=== PATIENT | male | born 1955 | race Caucasian/White ===

== ENCOUNTER 2019-01-17 08:37 | Day surgery (SDC) | payer OTHER ==
[~2019-01-17] VITALS: Ht 170.2 cm; Wt 91.2 kg
[2019-01-17 09:07] VITALS: Ht 170.2 cm; Wt 91.2 kg
[2019-01-17] MEDS ORDERED: TAMS0.4C2 PO (09:24)
[2019-01-17] MEDS ORDERED: FURO20TA3 PO (09:24)
[2019-01-17] MEDS ORDERED: METO-319 PO (09:24)
[2019-01-17] MEDS ORDERED: DEXT10TA9 PO (09:24)
[2019-01-17] MEDS ORDERED: ATOR40TA68 PO (09:24)
[2019-01-17] MEDS ORDERED: SITA100T11 PO (09:24)
[2019-01-17] MEDS ORDERED: AMLO-147 PO (09:24)
[2019-01-17] MEDS ORDERED: FLUT16SP17 NASAL (09:24)
[2019-01-17] MEDS ORDERED: IPRA15SP NS (09:24)
[2019-01-17] MEDS ORDERED: LORA10TA3 PO (09:24)
[2019-01-17] MEDS ORDERED: ASPI-903 PO (09:24)
[2019-01-17] MEDS ORDERED: LATA2.5D2 BOTH EYES (09:24)
[2019-01-17] MEDS ORDERED: LISI40TA3 PO (09:24)
[2019-01-17] MEDS ORDERED: ACET325T45 PO (09:24)
[2019-01-17] MEDS ORDERED: GUAI-173 PO (09:24)
[2019-01-17] MEDS ORDERED: CITA20TA8 PO (09:24)
[2019-01-17] MEDS ORDERED: BUPR100T7 PO (09:24)
[2019-01-17 09:25] VITALS: BP 117/81; PULSE 71; RESP 16
--- NOTE | 2019-01-17 09:35 | PREAC ---
Date/Time of Note Date/Time of Note DATE: 01/17/19 TIME: 09:34 Anesthesia Eval and Record Evaluation Time Pre-Procedure Interview DATE: 01/17/19 TIME: 09:34 Age 63 Sex male NPO: 8 hrs Preoperative diagnosis eflux esophagitis, screening Planned procedure EGD colonocopoy Past Medical History Past Medical History: Includes Cardio: HTN Endo: Diabetes Renal: CKD Surgery & Anesthesia Issues No known issue Meds Anticoagulation: No Beta Tree within 24 hr: No Reason Beta Tree not given: Pt. not on B-Tree Reported Medications Acetaminophen* (Acetaminophen*) 325 Mg Tablet, 325 MG PO Q4H PRN for PAIN AND OR ELEVATED TEMP, #30 TAB 01/17/19 Bupropion Hcl* (Bupropion Hcl SR*) 100 Mg Tablet.sa, 100 MG PO DAILY, TAB.SA 01/17/19 Ipratropium Vian (Ipratropium Vian) 15 Ml [place], 15 ML NS, SPRAY 01/17/19 Guaifenesin* (Tussin*) 100 Mg/5 Ml Syrup, 200 MG PO Q6 PRN for COUGH, ML 01/17/19 Amphet Qrx-Tcjvag-T-Amphet (Adderall) 10 Mg Tablet, 10 MG PO DAILY, TAB 01/17/19 Tamsulosin Hcl* (Tamsulosin Hcl*) 0.4 Mg Cap.er.24h, 0.4 MG PO HS, CAP 01/17/19 Latanoprost (Latanoprost) 2.5 Ml Drops, 1 DROP BOTH EYES QHS, #1 BOTTLE 01/17/19 Fluticasone Propionate* (Fluticasone Propionate* Nasal) 50 Mcg/Vershire - 16 Gm Vershire.susp, 1 SPRAY NASAL DAILY, #1 BOTTLE TO EACH NOSTRIL 01/17/19 Atorvastatin* (Atorvastatin*) 40 Mg Tablet, 10 MG PO QHS, #30 TAB 01/17/19 Aspirin* (Aspirin* Chew) 81 Mg Tab.chew, 81 MG PO DAILY, TAB.CHEW 01/17/19 Amlodipine Besylate* (Amlodipine Besylate*) 10 Mg Tablet, 10 MG PO DAILY, #30 TAB 01/17/19 Furosemide* (Furosemide*) 20 Mg Tablet, 20 MG PO DAILY, #60 TAB 01/17/19 Lisinopril* (Lisinopril*) 40 Mg Tablet, 40 MG PO DAILY, #30 TAB 01/17/19 Citalopram Hydrobromide* (Citalopram Hydrobromide*) 20 Mg Tablet, 20 MG PO EZEQUIEL Y, #30 TAB 01/17/19 Metoprolol Succinate* (Toprol XL*) 50 Mg Tab.er.24h, 50 MG PO DAILY, #30 TAB 01/17/19 Loratadine* (Loratadine*) 10 Mg Tablet, 10 MG PO DAILY, #30 TAB 01/17/19 Sitagliptin* (Januvia*) 100 Mg Tablet, 500 MG PO DAILY, #30 TAB 01/17/19 Meds reviewed: No Allergies Coded Allergies: No Known Drug Allergies (Verified Allergy, Unknown, 01/17/19) Allergies Reviewed: No Labs/Studies Labs Reviewed: Reviewed by anesthesiologist test: N/A Studies: ECG (n/a), CXR (n/a) Pre-procedure Exam Airway: Adequate mouth opening Mallampati: Mallampati I Teeth: Normal Lung: Normal Heart: Normal ASA Physical Status ASA physical status: 2 Emergency: None Planned Anesthetic General/MAC: MAC Pre-operative Attestations Prior to commencing anesthesia and surgery, the patient was re-evaluated, there was verification of: *The patient's identity *The results of appropriate recent lab work and preoperative vital signs *The above evaluation not changing prior to induction *Anesthetic plan, risk benefits, alternative and complications discussed with patient/family; questions answered; patient/family understands, accepts and wishes to proceed. HAIDER OREILLY MD Jan 17, 2019 09:35
[2019-01-17] MEDS ORDERED: FENTAnyl 50 MCG/ML VIAL ONE (09:36)
[2019-01-17] MEDS ORDERED: PROPOFOL 20 ML ONE ×2 (09:36→10:10)
[2019-01-17 10:00] VITALS: BP 112/57; PULSE 74; RESP 18
[2019-01-17 10:10] VITALS: BP 94/53; PULSE 74; RESP 18
[2019-01-17 10:29] VITALS: BP 105/62; PULSE 63; RESP 20
[2019-01-17] MEDS ORDERED: ONDANSETRON 4 MG INJ IV PRN (10:30)
--- NOTE | 2019-01-18 09:35 | PAC ---
Date/Time of Note Date/Time of Note DATE: 01/18/19 TIME: 09:34 Post-Anesthesia Notes Post-Anesthesia Note Last documented vital signs Vital Signs Date Temp Pulse Resp B/P (MAP) Pulse Ox O2 O2 Flow FiO2 Time Delivery Rate 01/17/19 97.2 63 20 105/62 94 Room Air 11:29 (76) Activity: WNL Respiratory function: WNL Cardiovascular function: WNL Mental status: Baseline Pain reasonably controlled: Yes Hydration appropriate: Yes Nausea/Vomiting absent: No HAIDER OREILLY MD Jan 18, 2019 09:35
== END 2019-01-17 12:01 | disposition home or self-care (01) ==
LOC: GIL 08:37
PROVIDERS: ATTEND Internal Medicine Gastroenterology
DX: Z12.11 Encounter for screening for malignant neoplasm of colon (principal); D12.3 Benign neoplasm of transverse colon; K64.8 Other hemorrhoids; K44.9 Diaphragmatic hernia without obstruction or gangrene; K21.0 Gastro-esophageal reflux disease with esophagitis; E11.9 Type 2 diabetes mellitus without complications; I12.9 Hypertensive chronic kidney disease with stage 1 through stage 4 chronic kidney disease, or unspecified chronic kidney disease; N18.9 Chronic kidney disease, unspecified
CPT/HCPCS: 43239; 45385; 82962; 88305; J3010; Z7610